=== PATIENT | female | born 2000 | race Caucasian/White ===

== ENCOUNTER 2019-07-17 20:51 | Emergency (ER) | payer MEDICAID ==
[~2019-07-17] VITALS: Ht 157.5 cm; Wt 65.8 kg
[2019-07-17 21:02] VITALS: BP 105/53
[2019-07-17 22:04] LABS: CLARITY URINE CLEAR (CLEAR); COLOR URINE YELLOW (YELLOW); KETONES URINE NEGATIVE (NEGATIVE); LEUKOCYTE ESTERASE URINE TRACE (NEGATIVE); NITRITE URINE NEGATIVE (NEGATIVE); OCCULT BLOOD URINE NEGATIVE (NEGATIVE); PH URINE 5.5 (4.5-8.0); PROTEIN URINE NEGATIVE (NEGATIVE); UROBILINOGEN URINE 0.2 E.U./dL (0.2-1.0)
== END 2019-07-17 22:55 | disposition left against medical advice (07) ==
LOC: ER 20:51
DX: Z00.00 Encounter for general adult medical examination without abnormal findings (principal); F12.10 Cannabis abuse, uncomplicated; F17.200 Nicotine dependence, unspecified, uncomplicated; Z53.21 Procedure and treatment not carried out due to patient leaving prior to being seen by health care provider
CPT/HCPCS: 81003; 81025

== ENCOUNTER 2019-10-13 17:52 | Emergency (ER) | payer SELFPAY ==
[~2019-10-13] VITALS: Ht 165.1 cm; Wt 64.0 kg
[2019-10-13] MEDS ORDERED: SODIUM CHLORIDE 0.9% 1,000 ML IV ONE (22:57)
[2019-10-13] MEDS ORDERED: ONDANSETRON HCL 4MG/2ML INJ IV ONE (23:00)
[2019-10-13 23:10] LABS: CLARITY URINE CLOUDY (CLEAR); COLOR URINE YELLOW (YELLOW); KETONES URINE TRACE (NEGATIVE); LEUKOCYTE ESTERASE URINE 1+ (NEGATIVE); NITRITE URINE NEGATIVE (NEGATIVE); OCCULT BLOOD URINE TRACE (NEGATIVE); PH URINE 5.5 (4.5-8.0); PROTEIN URINE NEGATIVE (NEGATIVE); SPECIFIC GRAVITY URINE 1.028 (1.005-1.030)
[2019-10-13 23:44] LABS: CHLORIDE 106 mEq/L (98-107)
[2019-10-13 23:47] LABS: BASOPHILS % 0.4 % (0.0-2.0); EOSINOPHILS % 0.3 % (0.0-5.0); HEMATOCRIT. 39.3 % (36.0-48.0); HEMOGLOBIN. 13.4 g/dL (12.0-16.0); MEAN CORPUSCULAR HEMOGLOBIN 30.8 pg (28.0-32.0); MEAN CORPUSCULAR VOLUME 90.2 fL (81.0-99.0); MONOCYTES % 7.9 % (2.0-8.0); NEUTROPHILS % 65.4 % (40.0-76.0); PLATELET 227 x1000/uL (130-400); RED BLOOD CELL COUNT 4.36 mill/uL (4.2-5.4); RED CELL DISTRIBUTION WIDTH 12.7 % (11.6-14.6)
[2019-10-14 00:08] LABS: B-HCG QUANTITATIVE 10209 mIU/mL (<3)
[2019-10-14 00:20] VITALS: BP 112/70
== END 2019-10-14 01:43 | disposition home or self-care (01) ==
LOC: ER 17:52
DX: O20.0 Threatened abortion (principal); O23.41 Unspecified infection of urinary tract in pregnancy, first trimester; O99.331 Smoking (tobacco) complicating pregnancy, first trimester; O99.321 Drug use complicating pregnancy, first trimester; F17.210 Nicotine dependence, cigarettes, uncomplicated; F12.90 Cannabis use, unspecified, uncomplicated; Z3A.01 Less than 8 weeks gestation of pregnancy
CPT/HCPCS: 36415; 76801; 76817; 80053; 81003; 84702; 85025; 86850; 86900; 86901; 96360; 99284; 99406; J7030

== ENCOUNTER 2020-03-24 02:53 | Emergency (ER) | payer MEDICAID ==
[~2020-03-24] VITALS: Ht 157.5 cm; Wt 68.0 kg
[2020-03-24] MEDS ORDERED: ACETAMINOPHEN 325MG TABLET PO NR (03:31)
[2020-03-24 03:35] LABS: CLARITY URINE CLOUDY (CLEAR); COLOR URINE YELLOW (YELLOW); KETONES URINE TRACE (NEGATIVE); LEUKOCYTE ESTERASE URINE NEGATIVE (NEGATIVE); NITRITE URINE NEGATIVE (NEGATIVE); OCCULT BLOOD URINE NEGATIVE (NEGATIVE); PROTEIN URINE 1+ (NEGATIVE)
[2020-03-24 04:16] VITALS: BP 121/75
== END 2020-03-24 04:25 | disposition home or self-care (01) ==
LOC: ER 02:53
DX: O26.891 Other specified pregnancy related conditions, first trimester (principal); R51 Headache; R11.0 Nausea; Z3A.01 Less than 8 weeks gestation of pregnancy
CPT/HCPCS: 81003; 81025; 82962; 99283

== ENCOUNTER 2020-04-17 20:06 | Emergency (ER) | payer MEDICAID ==
[~2020-04-17] VITALS: Ht 157.5 cm; Wt 70.0 kg
[2020-04-17 20:13] VITALS: BP 129/77
== END 2020-04-17 23:42 | disposition left against medical advice (07) ==
LOC: ER 20:06
DX: N93.9 Abnormal uterine and vaginal bleeding, unspecified (principal); Z53.21 Procedure and treatment not carried out due to patient leaving prior to being seen by health care provider
CPT/HCPCS: 93005

== ENCOUNTER 2024-03-09 08:28 | Emergency (ER) | payer MEDICAID ==
[~2024-03-09] VITALS: Ht 157.5 cm; Wt 68.0 kg
[2024-03-09 08:40] VITALS: O2SAT 100
[2024-03-09 09:10] LABS: CHLORIDE 112 mEq/L (98-107); POTASSIUM 3.8 mEq/L (3.5-5.1); SODIUM 141 mEq/L (136-145)
[2024-03-09 09:11] LABS: CLARITY URINE CLEAR (CLEAR); COLOR URINE YELLOW (YELLOW); GLUCOSE URINE NEGATIVE (NEGATIVE); KETONES URINE NEGATIVE (NEGATIVE); LEUKOCYTE ESTERASE URINE NEGATIVE (NEGATIVE); NITRITE URINE NEGATIVE (NEGATIVE); OCCULT BLOOD URINE NEGATIVE (NEGATIVE); PROTEIN URINE NEGATIVE (NEGATIVE); SPECIFIC GRAVITY URINE 1.021 (1.005-1.030); UROBILINOGEN URINE 0.2 E.U./dL (0.2-1.0)
[2024-03-09 09:11] LABS: CALCIUM 9.4 mg/dL (8.7-10.4); CARBON DIOXIDE 24 mEq/L (21-32)
[2024-03-09 09:16] LABS: CREATININE 0.7 mg/dL (0.6-1.0); GLUCOSE 94 mg/dL (70-105); UREA NITROGEN BLOOD 8 mg/dL (9-23)
[2024-03-09 09:17] LABS: BASOPHILS % 0.4 % (0.0-2.0); HEMATOCRIT. 41.5 % (36.0-48.0); HEMOGLOBIN. 13.9 g/dL (12.0-16.0); LYMPHOCYTES % 18.3 % (20.0-50.0); MEAN CORPUSCULAR HEMOGLOBIN 30.3 pg (28.0-32.0); MEAN CORPUSCULAR HGB CONC 33.4 g/dL (31.0-37.0); MEAN CORPUSCULAR VOLUME 90.7 fL (81.0-99.0); MEAN PLATELET VOLUME 8.7 fl (7.4-10.4); MONOCYTES % 5.6 % (2.0-8.0); NEUTROPHILS % 74.7 % (40.0-76.0); PLATELET 246 x1000/uL (130-400); RED BLOOD CELL COUNT 4.58 mill/uL (4.2-5.4); WHITE BLOOD COUNT 10.2 x1000/uL (4.5-11.0)
[2024-03-09 09:18] LABS: ALANINE AMINOTRANSFERASE 28 IU/L (10-49); ALBUMIN 4.2 g/dL (3.2-4.8); ASPARTATE AMINOTRANSFERASE 16 IU/L (<34); BILIRUBIN TOTAL 0.2 mg/dL (0.1-1.0)
[2024-03-09 09:19] LABS: BILIRUBIN DIRECT < 0.1 mg/dL (<=3.0); PROTEIN TOTAL 6.4 g/dL (6.0-8.3)
[2024-03-09] MEDS: KETOROLAC 30MG/ML VIAL IM NR (09:59)
[2024-03-09] MEDS: ONDANSETRON 4MG ODT PO ONE (10:00)
[2024-03-09] MEDS: SODIUM CHLORIDE 0.9% 1,000 ML IV ONE (10:45)
[2024-03-09] MEDS ORDERED: METRONIDAZOLE 500 MG PREMIX 100 ML IV ONE (10:45)
[2024-03-09] MEDS: CEFTRIAXONE 1GM/50ML 50 ML IV NR (10:45)
[2024-03-09] MEDS ORDERED: METRONIDAZOLE 500MG TABLET PO NR (11:00)
[2024-03-09 16:21] VITALS: BP 116/60; PULSE 78; RESP 12; TEMP 98.8
== END 2024-03-10 02:45 ==
LOC: ER 08:28 → EDBEDREQ 15:24 → EDBEDREQTM 15:24 → ER 03-10 02:45 → CANBEDREQ 03-10 03:34
DX: R10.11 Right upper quadrant pain (principal); F12.10 Cannabis abuse, uncomplicated
CPT/HCPCS: 99285; 96365; 96366; 76705; 80076; 80048; 81003; 81025; 83690; 85025; 87040; 36415; 96372; Q0162; J0696; J1885